=== PATIENT | male | born 1960 | race Caucasian/White ===

== ENCOUNTER 2016-08-10 15:04 | Emergency (ER) | payer OTHER ==
[2016-08-10] MEDS ORDERED: Bacitracin 500 Units/gm Oint Foilpak UD ONE (17:08)
--- NOTE | 2016-08-10 17:12 | C.PDOC ---
History Of Present Illness 56 year old patient presents to the ED complaining of a tick to the left posterior thorax after gardening yesterday. Patient denies fever, chills, nausea , or vomiting. Time Seen by Provider: 08/10/16 16:18 Chief Complaint (Nursing): Abnormal Skin Integrity History Per: Patient History/Exam Limitations: no limitations Onset/Duration Of Symptoms: Days (1) Current Symptoms Are (Timing): Still Present Quality Of Symptoms: Other Severity: Mild Pain Scale Rating Of: 3 Recent travel outside of the [place]: No Past Medical History Reviewed: Historical Data, Nursing Documentation, Vital Signs Vital Signs: Last Vital Signs Temp 97.8 F 08/10/16 17:16 Pulse 59 L 08/10/16 17:16 Resp 16 08/10/16 17:16 BP 149/89 08/10/16 17:16 Pulse Ox 97 08/10/16 18:20 - Medical History PMH: Gall Bladder Disease (gallstone), HTN, Kidney Stones Surgical History: Appendectomy (1985), Cholecystectomy (2015) - [facility] Procedures CYSTOSCOPY NEC (05/11/13) INFLUENZA VACCINATION (05/11/13) REMOV URETERAL DRAIN (07/04/13) RESECTION OF GALLBLADDER, PERCUTANEOUS ENDOSCOPIC APPROACH (05/30/15) TU REMOV URETER OBSTRUCT (07/04/13) URETERAL CATHETERIZATION (07/04/13) URETEROSCOPY (06/27/13) VACCINATION NEC (05/11/13) Family History: States: Unknown Family Hx - Social History Hx Tobacco Use: No Hx Alcohol Use: Yes Hx Substance Use: No - Immunization History Hx Tetanus Toxoid Vaccination: No Hx Influenza Vaccination: Yes Hx Pneumococcal Vaccination: Yes (nov 2015) Review Of Systems Except As Marked, All Systems Reviewed And Found Negative. Constitutional: Positive for: Other (tick on back). Negative for: Fever, Chills Gastrointestinal: Negative for: Nausea, Vomiting Physical Exam - Physical Exam Appears: Non-toxic, No Acute Distress Skin: Warm, Dry Head: Atraumatic, Normacephalic Neck: Normal ROM, Supple Chest: Symmetrical Cardiovascular: Rhythm Regular Respiratory: No Accessory Muscle Use Back: Normal Inspection, Other (1 tick to the left posterior thorax) Extremity: Normal ROM Neurological/Psych: Oriented x3 Gait: Steady ED Course And Treatment O2 Sat by Pulse Oximetry: 97 (RA) Pulse Ox Interpretation: Normal Progress Note: Plan: -Doryx. -Reassess and disposition. 1 tick removed entirely using alcohol and tweezers. Medical Decision Making Medical Decision Making: single tick removed from L posterior thorax in its entirety- likely from yesterday's gardening day Doxy 200 mg PO X 1 given in ED as a one-step prophylactic treatment. Disposition Doctor Will See Patient In The: Office Counseled Patient/Family Regarding: Studies Performed, Diagnosis - Disposition Referrals: Genie Brock MD [Staff Provider] - Disposition: HOME/ ROUTINE Disposition Time: 17:11 Condition: GOOD Additional Instructions: single tick removed from L posterior thorax in its entirety- likely from yesterday's gardening day Doxy 200 mg PO X 1 given in ED as a one-step prophylactic treatment. Instructions: Tick Bite (ED) - Clinical Impression Clinical Impression: Tick bite with subsequent removal of tick - Scribe Statement The provider has reviewed the documentation as recorded by the Scribe Donita Vargas Provider Attestation: All medical record entries made by the Scribe were at my direction and personally dictated by me. I have reviewed the chart and agree that the record accurately reflects my personal performance of the history, physical exam, medical decision making, and the department course for this patient. I have also personally directed, reviewed, and agree with the discharge instructions and disposition.
[2016-08-10 17:17] VITALS: BP 149/89; PULSE 59; RESP 16; TEMP 97.8
[2016-08-10 18:20] VITALS: O2SAT 97
== END 2016-08-10 17:17 | disposition home or self-care (01) ==
LOC: C.ER 15:04
DX: S20.462A Insect bite (nonvenomous) of left back wall of thorax, initial encounter (principal); W57.XXXA Bitten or stung by nonvenomous insect and other nonvenomous arthropods, initial encounter; Y93.H2 Activity, gardening and landscaping

== ENCOUNTER 2016-09-27 10:31 | Emergency (ER) | payer OTHER ==
[2016-09-27 10:45] VITALS: O2SAT 97
--- NOTE | 2016-09-27 11:46 | C.PDOC ---
History Of Present Illness 56-year-old male, presents to the emergency department with complaints of back pain. Patient states he was walking down, and when he bent down to shrimp picker his stool, the dog saw a squirrel and ran after it, causing patient to twist and injure back. Denies nausea/vomiting, symptoms or change in bowel habits. No direct trauma. Time Seen by Provider: 09/27/16 11:27 Chief Complaint (Nursing): Back Pain History Per: Patient History/Exam Limitations: no limitations Onset/Duration Of Symptoms: Days Current Symptoms Are (Timing): Still Present (1) Severity: Moderate Past Medical History Reviewed: Historical Data, Nursing Documentation, Vital Signs Vital Signs: Last Vital Signs Temp 98 F 09/27/16 12:22 Pulse 70 09/27/16 12:22 Resp 20 09/27/16 12:22 BP 130/80 09/27/16 12:22 Pulse Ox 97 09/27/16 12:22 - Medical History PMH: Gall Bladder Disease (gallstone), HTN, Kidney Stones Surgical History: Appendectomy (1985), Cholecystectomy (2015) - [facility] Procedures CYSTOSCOPY NEC (05/11/13) INFLUENZA VACCINATION (05/11/13) REMOV URETERAL DRAIN (07/04/13) RESECTION OF GALLBLADDER, PERCUTANEOUS ENDOSCOPIC APPROACH (05/30/15) TU REMOV URETER OBSTRUCT (07/04/13) URETERAL CATHETERIZATION (07/04/13) URETEROSCOPY (06/27/13) VACCINATION NEC (05/11/13) Family History: States: No Known Family Hx - Social History Hx Tobacco Use: No Hx Alcohol Use: Yes Hx Substance Use: No - Immunization History Hx Tetanus Toxoid Vaccination: No Hx Influenza Vaccination: Yes Hx Pneumococcal Vaccination: Yes (nov 2015) Review Of Systems Except As Marked, All Systems Reviewed And Found Negative. Respiratory: Negative for: Shortness of Breath Gastrointestinal: Negative for: Vomiting Genitourinary: Negative for: Incontinence Musculoskeletal: Positive for: Back Pain Neurological: Negative for: Weakness, Numbness Physical Exam - Physical Exam Appears: Non-toxic, No Acute Distress Neck: Normal ROM Gastrointestinal/Abdominal: Soft, No Tenderness Back: Decreased ROM (secondary to pain), Paraspinal Tenderness (B/L lumbar. (+) straight leg raise) Extremity: Normal ROM Neurological/Psych: Oriented x3 ED Course And Treatment O2 Sat by Pulse Oximetry: 97 Disposition Counseled Patient/Family Regarding: Diagnosis, Need For Followup - Disposition Referrals: Delano Dillon Jr., MD [Medical Doctor] - Disposition: HOME/ ROUTINE Disposition Time: 11:45 Condition: GOOD Prescriptions: Cyclobenzaprine [Cyclobenzaprine HCl] 1 tab PO Q8H PRN #25 tab PRN Reason: Muscle Spasm Naproxen [Naprosyn] 1 tab PO BID PRN #25 tab PRN Reason: Pain Instructions: Acute Low Back Pain (ED) Forms: Work Excuse - Clinical Impression Clinical Impression: Low back strain - Scribe Statement The provider has reviewed the documentation as recorded by the Scribe (Rita Thompson) All medical record entries made by the Scribe were at my direction and personally dictated by me. I have reviewed the chart and agree that the record accurately reflects my personal performance of the history, physical exam, medical decision making, and the department course for this patient. I have also personally directed, reviewed, and agree with the discharge instructions and disposition.
[2016-09-27] MEDS ORDERED: Naproxen 550 mg Tab PO STA (11:49)
[2016-09-27] MEDS ORDERED: Naproxen 550 mg Tab PO ONE (11:53)
[2016-09-27 12:24] VITALS: BP 130/80; PULSE 70; RESP 20; TEMP 98
== END 2016-09-27 12:22 | disposition home or self-care (01) ==
LOC: C.ER 10:31
DX: S39.012A Strain of muscle, fascia and tendon of lower back, initial encounter (principal); X50.1XXA Overexertion from prolonged static or awkward postures, initial encounter

== ENCOUNTER 2017-02-12 17:05 | Emergency (ER) | payer OTHER ==
[2017-02-12 17:23] VITALS: BP 159/87; PULSE 69; RESP 18; TEMP 97.8; O2SAT 97
--- NOTE | 2017-02-12 18:39 | C.PDOC ---
History Of Present Illness 56 y/o male with a hx of HTN and diabetes, c/o throat irritation/discomfort after swallowing a piece of chicken bone 4 days ago. Patient took meds for the symptoms with no relief. Denies pain, sore throat, fever, or chills. No GI problems. Speaking in full sentences and in no distress at this time. Time Seen by Provider: 02/12/17 17:41 Chief Complaint (Nursing): ENT Problem History Per: Patient History/Exam Limitations: None Onset/Duration Of Symptoms: Days Current Symptoms Are (Timing): Still Present Severity: Mild Past Medical History Reviewed: Historical Data, Nursing Documentation, Vital Signs Vital Signs: Last Vital Signs Temp 97.8 F 02/12/17 17:19 Pulse 69 02/12/17 17:19 Resp 18 02/12/17 17:19 BP 159/87 H 02/12/17 17:19 Pulse Ox 97 02/12/17 18:46 - Medical History PMH: Gall Bladder Disease (gallstone), HTN, Kidney Stones Surgical History: Appendectomy (1985), Cholecystectomy (2015) - [facility] Procedures CYSTOSCOPY NEC (05/11/13) INFLUENZA VACCINATION (05/11/13) REMOV URETERAL DRAIN (07/04/13) RESECTION OF GALLBLADDER, PERCUTANEOUS ENDOSCOPIC APPROACH (05/30/15) TU REMOV URETER OBSTRUCT (07/04/13) URETERAL CATHETERIZATION (07/04/13) URETEROSCOPY (06/27/13) VACCINATION NEC (05/11/13) Family History: States: Unknown Family Hx - Social History Hx Tobacco Use: No Hx Alcohol Use: No Hx Substance Use: No - Immunization History Hx Tetanus Toxoid Vaccination: No Hx Influenza Vaccination: Yes Hx Pneumococcal Vaccination: Yes (nov 2015) Review Of Systems Except As Marked, All Systems Reviewed And Found Negative. Constitutional: Negative for: Fever, Chills ENT: Positive for: Other (Throat irritation/discomfort). Negative for: Throat Pain Gastrointestinal: Negative for: Nausea, Vomiting, Abdominal Pain, Diarrhea Physical Exam - Physical Exam Appears: Non-toxic, No Acute Distress Skin: Warm, Dry Head: Atraumatic, Normacephalic Oral Mucosa: Moist Throat: Normal, No Erythema Neck: Supple Chest: Symmetrical Cardiovascular: Rhythm Regular, No Murmur Respiratory: Normal Breath Sounds, No Rales, No Rhonchi, No Wheezing Gastrointestinal/Abdominal: Soft, No Tenderness Neurological/Psych: Oriented x3 ED Course And Treatment O2 Sat by Pulse Oximetry: 97 (RA) Pulse Ox Interpretation: Normal Medical Decision Making Medical Decision Making: XRAY neck soft tissue Disposition - Disposition Referrals: Sean Mcneill MD [Staff Provider] - Disposition: HOME/ ROUTINE Disposition Time: 18:37 Condition: STABLE Additional Instructions: Foreign Body sensation Prescriptions: Aluminum Hydroxide/Magnesium H [Maalox 30 ml] 30 ml PO TID #1 bottle Forms: [employer] (Persian) - POA Present On Arrival: None - Clinical Impression Clinical Impression: Foreign body alimentary tract - Scribe Statement The provider has reviewed the documentation as recorded by the Scribe Jim santos All medical record entries made by the Scribe were at my direction and personally dictated by me. I have reviewed the chart and agree that the record accurately reflects my personal performance of the history, physical exam, medical decision making, and the department course for this patient. I have also personally directed, reviewed, and agree with the discharge instructions and disposition.
--- NOTE | 2017-02-13 10:51 | RAD ---
PROCEDURE: Radiographs of the neck (soft tissue). HISTORY: swallowed chicken bone?? COMPARISON: None. TECHNIQUE: Frontal and Lateral Radiographs of the neck, optimized for soft tissue visualization. FINDINGS: SOFT TISSUES: Unremarkable. No radiopaque foreign body seen. CERVICAL SPINE: Grossly unremarkable. OTHER FINDINGS: None. IMPRESSION: Unremarkable neck soft tissues radiograph. No retained radiodense foreign body appreciable. Follow-up neck CT without contrast may be helpful as clinically warranted.
== END 2017-02-12 18:47 | disposition home or self-care (01) ==
LOC: C.ER 17:05
DX: T18.9XXA Foreign body of alimentary tract, part unspecified, initial encounter (principal); X58.XXXA Exposure to other specified factors, initial encounter

== ENCOUNTER 2017-09-04 18:38 | Emergency (ER) | payer OTHER ==
[2017-09-04 18:46] VITALS: BP 141/88; PULSE 78; TEMP 98.2; O2SAT 98
--- NOTE | 2017-09-04 19:39 | C.PDOC ---
History Of Present Illness 57 year old male presents to the ED for evaluation of left lower back flank pain which gradually developed over the past few hours. Patient states he picked up a heavy box while working, after which symptoms began. Patient states pain is localized over his left lower back and is worse with movement. He denies abdominal pain, urinary/bowel incontinence, saddle anesthesia, weakness to bilateral upper and lower extremities, or direct trauma/injury to the site. Time Seen by Provider: 09/04/17 18:51 Chief Complaint (Nursing): Back Pain History Per: Patient History/Exam Limitations: no limitations Onset/Duration Of Symptoms: Hrs Current Symptoms Are (Timing): Still Present Quality Of Discomfort: "Pain" Previous Symptoms: Back Pain Associated Symptoms: denies: Incontinence, New Weakness, New Numbness Exacerbating Factor(s): Movement Additional History Per: Patient Past Medical History Reviewed: Historical Data, Nursing Documentation, Vital Signs Vital Signs: Last Vital Signs Temp 98.2 F 09/04/17 18:44 Pulse 78 09/04/17 18:44 Resp 16 09/04/17 18:44 BP 141/88 09/04/17 18:44 Pulse Ox 98 09/04/17 19:48 - Medical History PMH: Gall Bladder Disease (gallstone), HTN, Kidney Stones Surgical History: Appendectomy (1985), Cholecystectomy (2015) - [facility] Procedures CYSTOSCOPY NEC (05/11/13) INFLUENZA VACCINATION (05/11/13) REMOV URETERAL DRAIN (07/04/13) RESECTION OF GALLBLADDER, PERCUTANEOUS ENDOSCOPIC APPROACH (05/30/15) TU REMOV URETER OBSTRUCT (07/04/13) URETERAL CATHETERIZATION (07/04/13) URETEROSCOPY (06/27/13) VACCINATION NEC (05/11/13) Family History: States: Unknown Family Hx - Social History Hx Tobacco Use: No Hx Alcohol Use: No Hx Substance Use: No - Immunization History Hx Tetanus Toxoid Vaccination: No Hx Influenza Vaccination: Yes Hx Pneumococcal Vaccination: Yes (nov 2015) Review Of Systems Except As Marked, All Systems Reviewed And Found Negative. Constitutional: Negative for: Fever, Chills ENT: Negative for: Throat Pain Cardiovascular: Negative for: Chest Pain, Palpitations Gastrointestinal: Negative for: Nausea, Vomiting, Abdominal Pain Genitourinary: Negative for: Incontinence Musculoskeletal: Positive for: Back Pain Neurological: Negative for: Weakness, Numbness Physical Exam - Physical Exam Appears: Well, Non-toxic, No Acute Distress Skin: Warm, Dry, No Rash Head: Normacephalic Eye(s): bilateral: PERRL Oral Mucosa: Moist Neck: Trachea Midline, Supple Chest: Symmetrical, No Deformity, No Tenderness Cardiovascular: Rhythm Regular Respiratory: No Decreased Breath Sounds, No Accessory Muscle Use, No Rales, No Rhonchi, No Wheezing Gastrointestinal/Abdominal: Soft, No Tenderness, No Guarding Back: No Vertebral Tenderness, Paraspinal Tenderness (left-sided, lumbar ), Other (left flank tenderness ) Extremity: Normal ROM, No Pedal Edema, No Swelling Neurological/Psych: Oriented x3, Normal Speech, Normal Motor, Normal Sensation, Normal Reflexes Gait: Steady ED Course And Treatment O2 Sat by Pulse Oximetry: 98 (on RA) Pulse Ox Interpretation: Normal - Other Rad L-spine X-Ray: Interpreted by Me, Viewed By Me Interpretation: (-) acute fx or sublux Progress Note: LS Spine AP/LAT ordered. Motrin PO, Neurontin PO, and Tylenol PO administered. On re-evaluation, pt is afebrile, hemodynamicaly stable. Non- toxic. Ambulatory in ED with stable gait. ENT: No acute findings. Neck: Supple, (-) midline tenderness. Lungs: CTA B/L, BS equal B/L. Abd: benign, (- ) guarding, (-) rebound. Neurologicaly intact. Imagings review and appears w/ o acute findings. Pt has clinical findings c/w lumbar strain. Pt advised on course of ds. ref. to f/u with PMD in 2-3 days for re-eval. Return to ED if any worsening or new chanegs. Disposition Counseled Patient/Family Regarding: Studies Performed, Diagnosis, Need For Followup, Rx Given - Disposition Referrals: [facility] [Outside] Disposition: HOME/ ROUTINE Disposition Time: 20:09 Condition: STABLE Additional Instructions: Light duty to lower back Avoid bending forward, heavy lifting, etc. Take pain medication as prescribed 'Follow up with PMD in 2-3 days for re-evaluation. return to ED if any worsening or new changes. 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 - Scribe Statement The provider has reviewed the documentation as recorded by the Scribe (Lynne Vargas) All medical record entries made by the Scribe were at my direction and personally dictated by me. I have reviewed the chart and agree that the record accurately reflects my personal performance of the history, physical exam, medical decision making, and the department course for this patient. I have also personally directed, reviewed, and agree with the discharge instructions and disposition.
[2017-09-04 20:28] VITALS: RESP 20
--- NOTE | 2017-09-05 09:58 | RAD ---
PROCEDURE: Radiographs of the Lumbar Spine. HISTORY: injury, pain COMPARISON: No prior. FINDINGS: BONES: Straightened lumbar curvature without fracture or spondylolisthesis identified. No destructive bony lesion evident. DISC SPACES: Tissue loss L4-5 indicates degenerative changes with limited spondylosis at the upper an inferior lumbar intervertebral disc spaces as well. OTHER FINDINGS: None. IMPRESSION: Straightened curvature without fracture or spondylolisthesis. Multilevel spondylosis appears mild.
== END 2017-09-04 20:27 | disposition home or self-care (01) ==
LOC: C.ER 18:38
DX: S39.012A Strain of muscle, fascia and tendon of lower back, initial encounter (principal); X50.0XXA Overexertion from strenuous movement or load, initial encounter; Y92.89 Other specified places as the place of occurrence of the external cause; Y99.0 Civilian activity done for income or pay

== ENCOUNTER 2018-06-17 18:23 | Emergency (ER) | payer OTHER | END 2018-06-17 19:50 | disposition home or self-care (01) | LOC: C.ER 18:23 ==